=== PATIENT | female | born 1995 | race American Indian/Alaskan Native ===

== ENCOUNTER 2019-02-01 10:46 | Emergency (ER) | payer OTHER ==
[2019-02-01 11:01] VITALS: BP 118/61
[2019-02-01] MEDS ORDERED: IBUPROFEN PO ONE (11:43)
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
== END 2019-02-01 13:27 | disposition home or self-care (01) ==
LOC: ED 10:46
DX: M54.2 Cervicalgia (principal); M54.5 Low back pain; Z79.1 Long term (current) use of non-steroidal anti-inflammatories (NSAID); Z79.899 Other long term (current) drug therapy; V89.2XXA Person injured in unspecified motor-vehicle accident, traffic, initial encounter; Y93.89 Activity, other specified; Y92.098 Other place in other non-institutional residence as the place of occurrence of the external cause; Y99.8 Other external cause status
CPT/HCPCS: 72040; 99283